=== PATIENT | male | born 1970 | race Caucasian/White ===

== ENCOUNTER 2018-11-30 16:56 | Inpatient (IN) | payer OTHER ==
[2018-11-30 19:30] VITALS: BMI 37.0
--- NOTE | 2018-11-30 22:48 | HP ---
CIWA Score Nausea/Vomitin Muscle Tremors: 4-Moderate,w/Arms Extend Anxiety: 4-Mod. Anxious/Guarded Agitation: 4-Moderately Restless Paroxysmal Sweats: 2 Orientation: 0-Oriented Tacttile Disturbances: 0-None Auditory Disturbances: 0-None Visual Disturbances: 0-None Headache: 4-Moderately Severe CIWA-Ar Total Score: 20 - Admission Criteria OASAS Guidelines: Admission for Medically Managed Detox: Requires at least one of the followin. CIWA greater than 12 2. Seizures within the past 24 hours 3. Delirium tremens within the past 24 hours 4. Hallucinations within the past 24 hours 5. Acute intervention needed for co occurring medical disorder 6. Acute intervention needed for co occurring psychiatric disorder 7. Severe withdrawal that cannot be handled at a lower level of care (continued vomiting, continued diarrhea, abnormal vital signs) requiring intravenous medication and/or fluids 8. Admission ROS [facility] Chief Complaint: Alcohol withdrawal symptoms Allergies/Adverse Reactions: Allergies Allergy/AdvReac Type Severity Reaction Status Date / Time No Known Allergies Allergy Verified 11/30/18 19:24 History of Present Illness: 48 years old male with long history of alcohol dependence is seeking admission to detox. Patient has been in previous detox and reports 7 years of sobriety. He denies medical history and suicidal ideation at this time. This his first admission to [facility] Exam Limitations: No Limitations - Ebola screening Have you traveled outside of the country in the last 21 days: No Have you had contact with anyone from an Ebola affected area: No Do you have a fever: No - Review of Systems Constitutional: Chills, Loss of Appetite, Malaise, Changes in sleep EENT: reports: Sinus Pressure Respiratory: reports: No Symptoms reported Cardiac: reports: No Symptoms Reported GI: reports: Nausea, Poor Appetite, Poor Fluid Intake, Abdominal cramping : reports: No Symptoms Reported Musculoskeletal: reports: Back Pain, Joint Pain Integumentary: reports: Dryness, Flushing Neuro: reports: Tremors Endocrine: reports: No Symptoms Reported Hematology: reports: No Symptoms Reported Psychiatric: reports: Agitated, Anxious Other Systems: Reviewed and Negative Patient History - Patient Medical History Hx Anemia: No Hx Asthma: No Hx Chronic Obstructive Pulmonary Disease (COPD): No Hx Cancer: No Hx Cardiac Disorders: No Hx Congestive Heart Failure: No Hx Hypertension: No Hx Hypercholesterolemia: No Hx Pacemaker: No HX Cerebrovascular Accident: No Hx Seizures: No Hx Dementia: No Hx Diabetes: No Hx Gastrointestinal Disorders: No Hx Liver Disease: No Hx Genitourinary Disorders: No Hx Sexually Transmitted Disorders: No Hx Renal Disease (ESRD): No Hx Thyroid Disease: No Hx Human Immunodeficiency Virus (HIV): No (Negative 2018) Hx Hepatitis C: No Hx Depression: Yes (Not on medication) Hx Suicide Attempt: No (Denies suicidal ideation at this time) Hx Bipolar Disorder: No Hx Schizophrenia: No - Patient Surgical History Past Surgical History: Yes Other Surgical History: FINGER SURGERY 8 years ago - PPD History Previous Implant?: Yes Documented Results: Negative w/o proof Implanted On Prior [facility] Admission?: No PPD to be Administered?: Yes - Reproductive History Patient is a Female of Child Bearing Age (11 -55 yrs old): No (male) - Smoking Cessation Smoking history: Never smoked Have you smoked in the past 12 months: Yes Hx Chewing Tobacco Use: No Initiated information on smoking cessation: Yes 'Breaking Loose' booklet given: 11/30/18 - Substance & Tx. History Hx Alcohol Use: Yes Hx Substance Use: Yes Substance Use Type: Alcohol, Cocaine Hx Substance Use Treatment: Yes - Substances abused Alcohol Substance route: Oral Frequency: Daily Amount used: 1 gallon of vodka Age of first use: 34 Date of last use: 11/29/18 Cocaine Substance route: Smoking Frequency: 3-6 times per week Amount used: 10 dollars Age of first use: 31 Date of last use: 11/25/18 Marijuana/Hashish Substance route: Smoking Frequency: Daily Amount used: 1 blunt Age of first use: 17 Date of last use: 11/29/18 Family Disease History - Family Disease History Family Disease History: Other: Father (Alcoholics) Admission Physical Exam [facility] - Vital Signs Vital Signs: Vital Signs - 24 hr 11/30/18 19:23 Temperature 96.6 F L Pulse Rate 89 Respiratory 20 Rate Blood Pressure 109/69 - Physical General Appearance: Yes: Severe Distress HEENTM: Yes: Within Normal Limits, Nasal Congestion Respiratory: Yes: Lungs Clear, Normal Breath Sounds, No Respiratory Distress Neck: Yes: Supple Breast: Yes: Breast Exam Deferred Cardiology: Yes: Regular Rhythm, Regular Rate Abdominal: Yes: Normal Bowel Sounds Genitourinary: Yes: Within Normal Limits Back: Yes: Within Normal Limits Musculoskeletal: Yes: Back pain, Joint swelling Extremities: Yes: Tremors Neurological: Yes: Alert, Normal Mood/Affect Integumentary: Yes: Warm Lymphatic: Yes: Within Normal Limits - Diagnostic (1) Cannabis abuse with intoxication Current Visit: Yes Status: Acute (2) Cocaine abuse with intoxication Current Visit: Yes Status: Acute (3) Cocaine abuse, uncomplicated Current Visit: Yes Status: Acute Cleared for Admission S - Detox or Rehab [facility] Level of Care: Medically Managed Detox Regimen/Protocol: Librium Breathalyzer - Breathalyzer Breathalyzer: 0 Urine Drug Screen - Test Device Lot number: [id number] Expiration date: 07/29/20 - Control Is test valid?: Yes - Results Drug screen NEGATIVE: No Urine drug screen results: SANCHO-Cocaine, BZO-Benzodiazepines Inpatient Rehab Admission - Rehab Decision to Admit Inpatient rehab admission?: No
[2018-11-30] MEDS ORDERED: hydrOXYzine PAMOATE 25 MG CAPSULE (FP) PO PRN (23:00)
[2018-11-30] MEDS ORDERED: chlordiazePOXIDE HCL 25 MG CAPSULE PO PRN (23:00)
[2018-11-30] MEDS ORDERED: MAG HYDROX/AL HYDROX/SIMETH 30 ML UNIT-DOSE CUP PO PRN (23:00)
[2018-11-30] MEDS ORDERED: ACETAMINOPHEN 325 MG TABLET (FP) PO PRN ×2 (23:00)
[2018-11-30] MEDS ORDERED: MELATONIN 5 MG TABLETS PO PRN (23:00)
[2018-11-30] MEDS ORDERED: IBUPROFEN 400 MG TABLET (FP) PO PRN (23:00)
[2018-11-30] MEDS ORDERED: MAGNESIUM CITRATE 300 ML BOTTLE PO PRN (23:00)
[2018-11-30] MEDS ORDERED: METHOCARBAMOL 500 MG TABLET PO PRN (23:00)
[2018-11-30] MEDS ORDERED: MAGNESIUM HYDROX 2400MG/30ML ORAL SUSPENSION 30 ML CUP PO PRN (23:00)
[2018-11-30] MEDS ORDERED: BISMUTH SUBSALICYLATE 524 MG/30 ML UD PO PRN (23:00)
[2018-11-30] MEDS ORDERED: MENTHOL/PHENOL 1 EACH UD MM PRN (23:00)
[2018-12-01] MEDS: chlordiazePOXIDE HCL 25 MG CAPSULE PO SCH ×3 (00:17→10:07)
[2018-12-01 05:40] VITALS: TEMP 97.3
[2018-12-01 09:01] VITALS: BP 119/83; PULSE 76
[2018-12-01] MEDS ORDERED: TETRAHYDROZOLINE HCL EYE DROPS OU PRN (09:28)
[2018-12-01] MEDS ORDERED: ONDANSETRON *ODT* 4 MG TABLET SL PRN (09:29)
[2018-12-01] MEDS ORDERED: PRENATAL VITAMINS W/ FOLIC ACID TABLET (FP) PO SCH (10:00)
[2018-12-01] MEDS ORDERED: BACITRACIN 15 GM TUBE TOPICAL OINTMENT TP SCH (10:00)
[2018-12-01 10:04] LABS: HEMATOCRIT 43.6 % (35.4-49); HEMOGLOBIN 13.8 GM/dL (11.7-16.9); MCH 25.7 pg (25.7-33.7); MCHC 31.7 g/dl (32.0-35.9); MEAN CELL VOLUME 80.9 fl (80-96); MEAN PLT VOLUME 8.8 fl (7.5-11.1); PLATELET COUNT 308 K/MM3 (134-434); RBC 5.39 M/mm3 (4.00-5.60); WHITE BLOOD COUNT 5.3 K/mm3 (4.0-10.0)
[2018-12-01 10:16] LABS: ALBUMIN 3.4 g/dl (3.4-5.0); BILIRUBIN,TOTAL 0.7 mg/dL (0.2-1); BLOOD UREA NITROGEN 13.5 mg/dL (7-18); CALCIUM 8.5 mg/dL (8.5-10.1); CREATININE 1.2 mg/dL (0.55-1.3); POTASSIUM 4.3 mmol/L (3.5-5.1); TOT PROT 6.4 g/dl (6.4-8.2)
[2018-12-01] MEDS ORDERED: CEPHALEXIN MONOHYDRATE 500 MG CAPSULE (UD) PO SCH (14:00)
--- NOTE | 2018-12-01 17:13 | PN ---
S CIWA - CIWA Score Nausea/Vomitin Muscle Tremors: 3 Anxiety: 3 Agitation: 3 Paroxysmal Sweats: No Perspiration Orientation: 2-Disoriented Date<2 days Tacttile Disturbances: 2-Mild Itch/Numbness/Burn Auditory Disturbances: 0-None Visual Disturbances: 1-Very Mild Sensitivity Headache: 0-None Present CIWA-Ar Total Score: 17 [facility] Progress Note (SOAP) Subjective: Tremors, Interrupted Sleep, Body Aches, Interrupted Sleep, Diarrhea. Objective: PATIENT A & O X 2 (UNCERTAIN ABOUT CURRENT DAY / DATE). PATIENT OBSERVED AMBULATING ON UNIT UNASSISTED. IN NO ACUTE DISTRESS. 12/01/18 17:06 Vital Signs Temperature 97.3 F L 12/01/18 09:01 Pulse Rate 76 12/01/18 09:01 Respiratory Rate 18 12/01/18 09:01 Blood Pressure 119/83 12/01/18 09:01 O2 Sat by Pulse Oximetry (%) Laboratory Tests 12/01/18 12/01/18 12/01/18 07:50 07:50 07:50 WBC 5.3 RBC 5.39 Hgb 13.8 Hct 43.6 MCV 80.9 MCH 25.7 MCHC 31.7 L RDW 16.0 H Plt Count 308 MPV 8.8 Sodium 140 Potassium 4.3 Chloride 107 Carbon Dioxide 30 Anion Gap 3 L BUN 13.5 Creatinine 1.2 Est GFR (CKD-EPI)AfAm 82.96 Est GFR (CKD-EPI)NonAf 71.58 Random Glucose 104 Calcium 8.5 Total Bilirubin 0.7 AST 21 ALT 23 Alkaline Phosphatase 62 Total Protein 6.4 Albumin 3.4 RPR Titer Nonreactive LABS NOTED. Assessment: 12/01/18 17:09 WITHDRAWAL SYMPTOMS. Plan: CONTINUE DETOX. PATIENT REPORTS WOUND ON PINKY FINGER OF LEFT HAND, FOR WHICH HE RECEIVED ANTIBIOTICS AT [facility]. HOWEVER, PATIENT DID NOT BUILDING EQUIPMENT OPERATOR PRESCRIPTION FOR FOLLOW-UP OUTPATIENT CARE. PATIENT CONCERNED THAT FINGER MAY STILL BE INFECTED BECAUSE IT IS STILL SWOLLEN. MILD SWELLING NOTED IN PINKY FINGER OF LEF THAND. NO ERYTHEMA NOTED AT SITE. SMALL HEALING WOUND NOTED NEAR TIP OF PINKY FINGER (PATIENT UNABLE TO RECALL HOW THE WOUND OCCURRED). KELFLEX, 500 MG PO TID ORDERED. WOUND ON TIP OF PINKY FINGER OF LEFT HAND TO BE CLEANED WITH NORMAL SALINE BID, THEN BACITRACIN TO BE APPLIED.
--- NOTE | 2018-12-01 17:14 | DS ---
[facility] Detox Discharge Summary Admission Date: 11/30/18 Discharge Date: 12/01/18 - History Present History: Alcohol Dependence, Cannabis Dependence, Cocaine Dependence Additional Comments: PATIENT REPORTS FAMILY EMERGENCY AND THAT HE DOES NOT WISH TO REMAIN TO COMPLETE DETOX REGIMEN. RISKS OF LEAVING DETOX UNIT AGAINST MEDICAL ADVICE AND PRIOR TO COMPLETION OF DETOX REGIMEN EXPLAINED TO PATIENT. PATIENT ADVISED TO GO IMMEDIATELY TO NEAREST ER SHOULD ANY INTOLERABLE WITHDRAWAL / DETOX SYMPTOMS DEVELOP AT ANY TIME. PRESCRIPTION FOR KELFEX STARTED WHILE PATIENT WAS ADMITTED FOR DETOX FOR TREATMENT OF POSSIBLE INFECTED WOUND OF 5 TH DIGIT OF LEFT HAND SENT TO [facility] ([place], [place]) AT PATIENT'S REQUEST. PATIENT ADVISED TO CONTINUE APPLY BACITRACIN ANTIBIOTIC OINTMENT TO WOUND OF 5 TH DIGIT OF LEFT HAND FOR NEXT FEW DAYS. PATIENT ALSO ADVISED TO FOLLOW-UP WITH BEHAVIORAL TECHNICIAN AFTER DISCHARGE FROM DETOX FOR GENERAL MEDICAL ASSESSMENT AND FOR HISTORY OF WOUND / INFECTION OF PINKY FINGER OF LEFT HAND. PATIENT ALSO PATIENT VERBALIZED UNDERSTANDING OF ALL INFORMATION / RECOMMENDATIONS PRESENTED TO HIM PRIOR TO DEPARTURE FROM DETOX UNIT. PATIENT LEFT DETOX UNIT IN STABLE MEDICAL CONDITION. Pertinent Past History: Depression, Wound Of 5th Digit of Left Hand. - Physical Exam Results Vital Signs: Vital Signs Temperature 97.3 F L 12/01/18 09:01 Pulse Rate 76 12/01/18 09:01 Respiratory Rate 18 12/01/18 09:01 Blood Pressure 119/83 12/01/18 09:01 O2 Sat by Pulse Oximetry (%) Pertinent Admission Physical Exam Findings: WITHDRAWAL SYMPTOMS. Laboratory Tests 12/01/18 12/01/18 12/01/18 07:50 07:50 07:50 WBC 5.3 RBC 5.39 Hgb 13.8 Hct 43.6 MCV 80.9 MCH 25.7 MCHC 31.7 L RDW 16.0 H Plt Count 308 MPV 8.8 Sodium 140 Potassium 4.3 Chloride 107 Carbon Dioxide 30 Anion Gap 3 L BUN 13.5 Creatinine 1.2 Est GFR (CKD-EPI)AfAm 82.96 Est GFR (CKD-EPI)NonAf 71.58 Random Glucose 104 Calcium 8.5 Total Bilirubin 0.7 AST 21 ALT 23 Alkaline Phosphatase 62 Total Protein 6.4 Albumin 3.4 RPR Titer Nonreactive LABS NOTED. - Medication Discharge Medications: Ambulatory Orders Cephalexin [Keflex] 500 mg PO TID 7 Days #21 capsule 12/01/18 - Diagnosis (1) Alcohol dependence with uncomplicated withdrawal Status: Acute (2) Cannabis abuse with intoxication Status: Acute (3) Cocaine abuse with intoxication Status: Acute (4) Cocaine abuse, uncomplicated Status: Acute - AMA Did Patient Leave Against Medical Advice: Yes (PATIENT HAD FAMIYL EMERGENCY AND DID NOT WISH TO REMAIN TO COMPLETE DETOX.)
[2018-12-01] MEDS ORDERED: THIAMINE HCL 100 MG TABLET (FP) PO SCH (22:00)
[2018-12-02] MEDS ORDERED: chlordiazePOXIDE HCL 25 MG CAPSULE PO SCH (05:00)
--- NOTE | 2018-12-02 10:41 | EKG ---
Test Reason : Blood Pressure : / mmHG Vent. Rate : 082 BPM Atrial Rate : 082 BPM P-R Int : 146 ms QRS Dur : 074 ms QT Int : 390 ms P-R-T Axes : 054 -15 004 degrees QTc Int : 455 ms NORMAL SINUS RHYTHM NORMAL ECG NO PREVIOUS ECGS AVAILABLE Confirmed by BO KHOURY MD ([id number]) on 12/02/2018 10:40:32 AM Referred By: Confirmed By:BO KHOURY MD
[2018-12-03] MEDS ORDERED: chlordiazePOXIDE HCL 10 MG CAPSULE PO PRN
[2018-12-03] MEDS ORDERED: chlordiazePOXIDE HCL 10 MG CAPSULE PO SCH (05:00)
[2018-12-04] MEDS ORDERED: chlordiazePOXIDE HCL 10 MG CAPSULE PO SCH (05:00)
[2018-12-05] MEDS ORDERED: chlordiazePOXIDE HCL 10 MG CAPSULE PO ONE (05:00)
== END 2018-12-01 11:37 | disposition left against medical advice (07) | DRG 894 ==
LOC: YASAS 16:56 → Y3N 23:05
PROVIDERS: ADMIT Surgery; ATTEND Surgery
PROC: HZ2ZZZZ Detoxification Services for Substance Abuse Treatment (ICD-10-PCS; principal; 2018-11-30)
DX: F10.230 Alcohol dependence with withdrawal, uncomplicated (principal); F14.129 Cocaine abuse with intoxication, unspecified; F12.129 Cannabis abuse with intoxication, unspecified; F32.9 Major depressive disorder, single episode, unspecified; Z59.0 Homelessness
CPT/HCPCS: 36415; 80053; 85027; 86593; 93005; 93010

== ENCOUNTER 2018-12-02 04:55 | Inpatient (IN) | payer OTHER ==
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
[2018-12-02] MEDS ORDERED: DICYCLOMINE HCL 10 MG CAPSULE PO PRN (05:38)
[2018-12-02] MEDS ORDERED: ONDANSETRON *ODT* 4 MG TABLET SL PRN (05:38)
[2018-12-02] MEDS ORDERED: ACETAMINOPHEN 325 MG TABLET (FP) PO PRN ×2 (05:38)
[2018-12-02] MEDS ORDERED: P-EPHED 60MG/TRIPROLIDI 2.5MG TABLET PO PRN (05:38)
[2018-12-02] MEDS ORDERED: MENTHOL/PHENOL 1 EACH UD MM PRN (05:38)
[2018-12-02] MEDS ORDERED: IBUPROFEN 400 MG TABLET (FP) PO PRN (05:38)
[2018-12-02] MEDS ORDERED: guaiFENesin 200 MG/10 ML 10 ML UNIT-DOSE CUPS PO PRN (05:38)
[2018-12-02] MEDS ORDERED: MAGNESIUM HYDROX 2400MG/30ML ORAL SUSPENSION 30 ML CUP PO PRN (05:38)
[2018-12-02] MEDS ORDERED: MAGNESIUM CITRATE 300 ML BOTTLE PO PRN (05:38)
[2018-12-02] MEDS ORDERED: BISMUTH SUBSALICYLATE 524 MG/30 ML UD PO PRN (05:38)
[2018-12-02] MEDS: CEPHALEXIN MONOHYDRATE 500 MG CAPSULE (UD) PO SCH ×4 (06:51→23:14)
[2018-12-02] MEDS: chlordiazePOXIDE HCL 25 MG CAPSULE PO SCH ×4 (06:51→22:11)
[2018-12-02] MEDS ORDERED: TUBERCULIN PPD 5 TU/0.1ML VIAL ID ONE (06:57)
--- NOTE | 2018-12-02 09:46 | PN ---
[facility] CIWA - CIWA Score Nausea/Vomitin Muscle Tremors: 2 Anxiety: 2 Agitation: 2 Paroxysmal Sweats: 1-Minimal Palms Moist Orientation: 0-Oriented Tacttile Disturbances: 1-Very Mild Itch/Numbness Auditory Disturbances: 1-Very Mild Visual Disturbances: 0-None Headache: 2-Mild CIWA-Ar Total Score: 13 [facility] Progress Note (SOAP) Subjective: alert,irritable,anxious,interrupted sleep,tremor Objective: 12/02/18 09:45 Vital Signs Temperature 98.4 F 12/02/18 09:15 Pulse Rate 87 12/02/18 09:15 Respiratory Rate 18 12/02/18 09:15 Blood Pressure 108/65 12/02/18 09:15 O2 Sat by Pulse Oximetry (%) Assessment: 12/02/18 09:46 withdrawal symptom Plan: continue detox
[2018-12-02] MEDS: PRENATAL VITAMINS W/ FOLIC ACID TABLET (FP) PO SCH (10:17)
--- NOTE | 2018-12-02 10:23 | EKG ---
Test Reason : Blood Pressure : / mmHG Vent. Rate : 091 BPM Atrial Rate : 091 BPM P-R Int : 140 ms QRS Dur : 074 ms QT Int : 374 ms P-R-T Axes : 054 -13 -04 degrees QTc Int : 460 ms NORMAL SINUS RHYTHM NONSPECIFIC T WAVE ABNORMALITY WHEN COMPARED WITH ECG OF 01-DEC-2018 05:14, NO SIGNIFICANT CHANGE WAS FOUND Confirmed by BO KHOURY MD ([id number]) on 12/02/2018 10:22:49 AM Referred By: Confirmed By:BO KHOURY MD
[2018-12-02] MEDS: BACITRACIN 0.9 GM PACKET TP SCH (11:34)
--- NOTE | 2018-12-02 14:37 | CONSULT ---
[facility] Psychiatric Consult - Data Psychiatric History: Patient could not be seen. He has been in bed sleeping all day complaing experiencing severe pain both feet from walking long distance
[2018-12-02] MEDS: chlordiazePOXIDE HCL 25 MG CAPSULE PO PRN (15:54)
[2018-12-02] MEDS: THIAMINE HCL 100 MG TABLET (FP) PO SCH (22:11)
[2018-12-03] MEDS: chlordiazePOXIDE HCL 25 MG CAPSULE PO PRN ×5 (03:43→23:55)
[2018-12-03] MEDS: chlordiazePOXIDE HCL 25 MG CAPSULE PO SCH ×4 (05:21→22:13)
[2018-12-03] MEDS: CEPHALEXIN MONOHYDRATE 500 MG CAPSULE (UD) PO SCH ×4 (05:22→23:56)
--- NOTE | 2018-12-03 10:23 | CONSULT ---
[facility] Psychiatric Consult - Data Date of interview: 12/03/18 Psychiatric History: Patient was approached for interview. He said that director underwriter sales has been stocking him since yesterday and he does not want to see director underwriter sales
[2018-12-03] MEDS: PRENATAL VITAMINS W/ FOLIC ACID TABLET (FP) PO SCH (10:41)
[2018-12-03] MEDS: BACITRACIN 0.9 GM PACKET TP SCH ×2 (10:43→11:00)
--- NOTE | 2018-12-03 11:32 | PN ---
S CIWA - CIWA Score Nausea/Vomitin Muscle Tremors: 2 Anxiety: 2 Agitation: 2 Paroxysmal Sweats: No Perspiration Orientation: 0-Oriented Tacttile Disturbances: 1-Very Mild Itch/Numbness Auditory Disturbances: 1-Very Mild Visual Disturbances: 0-None Headache: 2-Mild CIWA-Ar Total Score: 12 [facility] Progress Note (SOAP) Subjective: alert,irritable,anxious,interrupted sleep,tremor,avulsion of nail left 5th finger Objective: 12/03/18 11:32 Vital Signs Temperature 97.3 F L 12/03/18 11:25 Pulse Rate 85 12/03/18 11:25 Respiratory Rate 18 12/03/18 11:25 Blood Pressure 116/79 12/03/18 11:25 O2 Sat by Pulse Oximetry (%) Assessment: 12/03/18 11:32 withdrawal symptom Plan: continue detox
[2018-12-03] MEDS: hydrOXYzine PAMOATE 25 MG CAPSULE (FP) PO PRN ×2 (14:45→22:14)
[2018-12-03] MEDS: METHOCARBAMOL 500 MG TABLET PO PRN ×2 (14:45→22:14)
[2018-12-03] MEDS: THIAMINE HCL 100 MG TABLET (FP) PO SCH (22:13)
[2018-12-03] MEDS: MELATONIN 5 MG TABLETS PO PRN (22:14)
[2018-12-03] MEDS: MAG HYDROX/AL HYDROX/SIMETH 30 ML UNIT-DOSE CUP PO PRN (23:56)
[2018-12-04] MEDS: chlordiazePOXIDE HCL 10 MG CAPSULE PO SCH ×4 (06:30→22:42)
[2018-12-04] MEDS: CEPHALEXIN MONOHYDRATE 500 MG CAPSULE (UD) PO SCH ×4 (06:30→23:35)
--- NOTE | 2018-12-04 10:30 | PN ---
S CIWA - CIWA Score Nausea/Vomitin-No Nausea/No Vomiting Muscle Tremors: 3 Anxiety: 3 Agitation: 0-Normal Activity Paroxysmal Sweats: 3 Orientation: 0-Oriented Tacttile Disturbances: 0-None Auditory Disturbances: 0-None Visual Disturbances: 0-None Headache: 2-Mild CIWA-Ar Total Score: 11 BHS Progress Note (SOAP) Subjective: c/o shakes, headache, chills, and anxiety. Objective: 12/04/18 10:29 Vital Signs 12/04/18 03:30 Respiratory 18 Rate Vital Signs - 24 hr 12/03/18 12/03/18 12/03/18 11:25 14:01 17:02 Temperature 97.3 F L 97.3 F L 97.9 F Pulse Rate 85 83 91 H Respiratory 18 17 20 Rate Blood Pressure 116/79 100/65 115/83 12/03/18 12/03/18 12/04/18 21:25 22:00 03:30 Temperature 98.1 F Pulse Rate 97 H 89 Respiratory 18 18 18 Rate Blood Pressure 124/78 100/73 Assessment: 12/04/18 10:29 AOX3, in no acute respiratory distress. Full ROM, ambulating in the unit. withdrawal symptoms Plan: continue detox.
[2018-12-04] MEDS: PRENATAL VITAMINS W/ FOLIC ACID TABLET (FP) PO SCH (11:02)
[2018-12-04] MEDS: BACITRACIN 0.9 GM PACKET TP SCH (11:04)
[2018-12-04] MEDS: chlordiazePOXIDE HCL 10 MG CAPSULE PO PRN ×2 (13:30→18:11)
[2018-12-04] MEDS: hydrOXYzine PAMOATE 25 MG CAPSULE (FP) PO PRN ×2 (17:00→22:42)
[2018-12-04] MEDS ORDERED: BENZOCAINE 20 % GEL TUBE MM PRN (18:00)
--- NOTE | 2018-12-04 18:03 | PN ---
[facility] Progress Note Note: complained of soreness in the mouth Vital Signs Temperature 98.8 F 12/04/18 17:48 Pulse Rate 95 H 12/04/18 17:48 Respiratory Rate 18 12/04/18 17:48 Blood Pressure 113/74 12/04/18 17:48 O2 Sat by Pulse Oximetry (%) anbesol ordered
[2018-12-04] MEDS: METHOCARBAMOL 500 MG TABLET PO PRN (20:49)
[2018-12-04] MEDS: MAG HYDROX/AL HYDROX/SIMETH 30 ML UNIT-DOSE CUP PO PRN (22:42)
[2018-12-04] MEDS: THIAMINE HCL 100 MG TABLET (FP) PO SCH (22:42)
[2018-12-04] MEDS: MELATONIN 5 MG TABLETS PO PRN (22:42)
[2018-12-05] MEDS ORDERED: hydrOXYzine PAMOATE 25 MG CAPSULE (FP) PO ONE (01:38)
[2018-12-05] MEDS: MAG HYDROX/AL HYDROX/SIMETH 30 ML UNIT-DOSE CUP PO PRN (04:15)
[2018-12-05] MEDS: chlordiazePOXIDE HCL 10 MG CAPSULE PO SCH ×2 (06:08→16:26)
[2018-12-05] MEDS: CEPHALEXIN MONOHYDRATE 500 MG CAPSULE (UD) PO SCH ×3 (06:08→17:30)
[2018-12-05] MEDS: BACITRACIN 0.9 GM PACKET TP SCH (12:23)
[2018-12-05] MEDS: PRENATAL VITAMINS W/ FOLIC ACID TABLET (FP) PO SCH (12:23)
[2018-12-05] MEDS: hydrOXYzine PAMOATE 25 MG CAPSULE (FP) PO PRN (12:24)
[2018-12-05 13:14] VITALS: TEMP 97.2
--- NOTE | 2018-12-05 14:13 | PN ---
[facility] CIWA - CIWA Score Nausea/Vomitin-No Nausea/No Vomiting Muscle Tremors: 2 Anxiety: 3 Agitation: 2 Paroxysmal Sweats: No Perspiration Orientation: 0-Oriented Tacttile Disturbances: 2-Mild Itch/Numbness/Burn Auditory Disturbances: 0-None Visual Disturbances: 0-None Headache: 0-None Present CIWA-Ar Total Score: 9 S Progress Note (SOAP) Subjective: Diarrhea, Anxious, Tremors. Objective: PATIENT A & O X 3, OBSERVED AMBULATING ON UNIT UNASSISTED. IN NO ACUTE DISTRESS. 12/05/18 14:11 Vital Signs Temperature 97.2 F L 12/05/18 13:13 Pulse Rate 86 12/05/18 13:13 Respiratory Rate 18 12/05/18 13:13 Blood Pressure 100/68 12/05/18 13:13 O2 Sat by Pulse Oximetry (%) ADMISSION LAB RESULTS NOTED. 12/05/18 14:12 Assessment: 12/05/18 14:12 WITHDRAWAL SYMPTOMS. Plan: CONTINUE DETOX. INCREASE DAILY PO WATER INTAKE. PRN PEPTO-BISMOL PO FOR DIARRHEA. PATIENT SCHEDULED FOR DISCHARGE FROM DETOX UNIT TOMORROW.
[2018-12-05] MEDS ORDERED: hydrOXYzine PAMOATE 50 MG CAPSULE (FP) PO PRN (14:15)
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
[2018-12-05 17:24] VITALS: BP 103/79; PULSE 91
--- NOTE | 2018-12-05 17:32 | PN ---
[facility] Progress Note Note: patient is stable to be discharged today,stated he has a bed in [facility] and would like to go there by himself, keflex 500 mgs 6 hrs x 7days,sent to [facility]
--- NOTE | 2018-12-05 17:40 | DS ---
[facility] Detox Discharge Summary Admission Date: 12/02/18 Discharge Date: 12/05/18 - History Present History: Alcohol Dependence, Cocaine Dependence Additional Comments: stable for discharge today,stated that he will go to [facility] rehab by himself ,the bod is available for him Pertinent Past History: dehydration depression avulsion of nail left 5th finger - Physical Exam Results Vital Signs: Vital Signs Temperature 97.2 F L 12/05/18 17:22 Pulse Rate 91 H 12/05/18 17:22 Respiratory Rate 18 12/05/18 17:22 Blood Pressure 103/79 12/05/18 17:22 O2 Sat by Pulse Oximetry (%) Pertinent Admission Physical Exam Findings: withdrawal signs and symptom Vital Signs Temperature 97.2 F L 12/05/18 17:22 Pulse Rate 91 H 12/05/18 17:22 Respiratory Rate 18 12/05/18 17:22 Blood Pressure 103/79 12/05/18 17:22 O2 Sat by Pulse Oximetry (%) - Treatment Hospital Course: Detox Protocol Followed, Detoxed Safely, Responded well, Discharged Condition Good, Rehab Referral Accepted Patient has Accepted a Rehab Referral to: [facility] - Medication Discharge Medications: Ambulatory Orders Cephalexin [Keflex] 500 mg PO TID 7 Days #21 capsule 12/05/18 - Diagnosis (1) Alcohol dependence with uncomplicated withdrawal Current Visit: Yes Status: Acute (2) At risk for dehydration due to poor fluid intake Current Visit: Yes Status: Acute (3) Cocaine abuse, uncomplicated Current Visit: Yes Status: Acute (4) Depression Current Visit: Yes Status: Acute (5) Avulsion of nail Current Visit: Yes Status: Acute - AMA Did Patient Leave Against Medical Advice: No
[2018-12-05] MEDS ORDERED: SUVOREXANT 10 MG TABLET PO PRN (21:00)
[2018-12-06] MEDS ORDERED: chlordiazePOXIDE HCL 10 MG CAPSULE PO ONE (05:00)
== END 2018-12-05 18:22 | disposition home or self-care (01) | DRG 897 ==
LOC: YASAS 04:55 → Y6N 05:30
PROVIDERS: ADMIT Surgery; ATTEND Surgery
PROC: HZ2ZZZZ Detoxification Services for Substance Abuse Treatment (ICD-10-PCS; principal; 2018-12-02)
DX: F10.230 Alcohol dependence with withdrawal, uncomplicated (principal); F14.20 Cocaine dependence, uncomplicated; F19.282 Other psychoactive substance dependence with psychoactive substance-induced sleep disorder; F12.20 Cannabis dependence, uncomplicated; F19.24 Other psychoactive substance dependence with psychoactive substance-induced mood disorder; F41.8 Other specified anxiety disorders; F32.9 Major depressive disorder, single episode, unspecified; F41.0 Panic disorder [episodic paroxysmal anxiety]; E86.0 Dehydration; R45.89 Other symptoms and signs involving emotional state; K13.79 Other lesions of oral mucosa; Z91.89 Other specified personal risk factors, not elsewhere classified; S61.307A Unspecified open wound of left little finger with damage to nail, initial encounter; X58.XXXA Exposure to other specified factors, initial encounter; Y93.9 Activity, unspecified; Y92.89 Other specified places as the place of occurrence of the external cause; Y99.8 Other external cause status; Z59.0 Homelessness
CPT/HCPCS: 93005; 93010